=== PATIENT | male | born 1960 | race Caucasian/White ===

== ENCOUNTER 2016-07-29 00:03 | Inpatient (IN) | payer OTHER ==
[~2016-07-29] VITALS: Ht 185.4 cm; Wt 85.9 kg
[~2016-07-29 00:03] MED LIST: NOHOMEMEDS
[2016-07-29 01:10] LABS: HEMATOCRIT 37.1 % (38.0-50.0); MCH 30.3 PG (29.0-34.0); MCHC 35.6 G/DL (30.0-36.0); MCV 85.1 FL (86-99); MEAN PLAT.VOLUME 11.3 uM^3 (9.0-12.4); PLATELET COUNT 359 K/uL (156-360); RBC DIS.WIDTH-CV 11.9 % (11.8-14.6); RBC DIS.WIDTH-SD 36.4 % (39-53); RED BLOOD COUNT 4.36 M/uL (4.00-5.50); WHITE BLOOD COUNT 12.7 K/uL (4.1-10.2)
[2016-07-29 01:19] LABS: CHLORIDE 105 mEq/L (99-109); POTASSIUM 3.8 mEq/L (3.7-5.4); SODIUM 138 mEq/L (136-147)
[2016-07-29 01:20] LABS: GLUCOSE 128 mg/dL (70-99)
[2016-07-29 01:22] LABS: ANION GAP 12 MEQ/L (2-14)
[2016-07-29 01:24] LABS: GFR ESTIMATE (CALCULATED) > 59 mL/min/
[2016-07-29 01:25] LABS: UREA NITROGEN (BUN) 17 mg/dL (9-23)
[2016-07-29 01:25] LABS: ADD MIUA? NO; BILIRUBIN NEGATIVE; BLOOD NEGATIVE; COLOR YELLOW ((YELLOW)); GLUCOSE (STRIP) NEGATIVE; KETONES NEGATIVE; LEUKOCYTES NEGATIVE; NITRITE NEGATIVE; PROTEIN (STRIP) 30; UCUL ADDED? NO; UROBILINOGEN 0.2 MG/DL (0.2-1.0)
[2016-07-29 01:28] LABS: D-DIMER ELISA 1.73 mg/L FEU (< 0.57)
[2016-07-29 02:47] LABS: PROTHROMBIN TIME 10.4 (9.2-11.2); PTT 28.5 (25-32)
[2016-07-29 06:22] VITALS: BP 139/79
[2016-07-29 09:06] LABS: HEMATOCRIT 33.7 % (38.0-50.0); MCH 29.7 PG (29.0-34.0); MCHC 34.4 G/DL (30.0-36.0); MCV 86.2 FL (86-99); MEAN PLAT.VOLUME 11.1 uM^3 (9.0-12.4); PLATELET COUNT 301 K/uL (156-360); RBC DIS.WIDTH-CV 12.2 % (11.8-14.6); RBC DIS.WIDTH-SD 38.4 % (39-53); RED BLOOD COUNT 3.91 M/uL (4.00-5.50); WHITE BLOOD COUNT 10.6 K/uL (4.1-10.2)
[2016-07-29 09:07] VITALS: BP 115/67
[2016-07-29 09:28] LABS: ALKALINE PHOSPHATASE 75 IU/L (3-129); ANION GAP 9 MEQ/L (2-14); CHLORIDE 105 MEQ/L (99-109); GFR ESTIMATE (CALCULATED) > 59 mL/min/; GLUCOSE 116 mg/dL (70-99); POTASSIUM 3.8 MEQ/L (3.7-5.4); SAMPLE HEMOLYSIS CHECK 0; SAMPLE ICTERIC CHECK 0; SAMPLE LIPEMIA CHECK 0; SODIUM 138 MEQ/L (136-147); TOTAL BILIRUBIN 1.2 MG/DL (0.0-1.0); UREA NITROGEN (BUN) 17 mg/dL (9-23)
[2016-07-29 11:36] LABS: INTER. NORMALIZED RATIO 1.1; PROTHROMBIN TIME 10.9 (9.2-11.2)
[2016-07-29 12:39] VITALS: BP 118/74
[2016-07-29] MEDS ORDERED: LIPITOR20 MG PO (12:56)
[2016-07-29] MEDS ORDERED: TYLENOL REGULA325 MG PO (12:57)
[2016-07-29] MEDS ORDERED: OXAYDO5 MG PO (12:57)
[2016-07-29] MEDS ORDERED: OSTEO BI-FLEX1 EAC1 PO (12:58)
[2016-07-29 16:30] VITALS: BP 149/80
[2016-07-29 20:02] VITALS: BP 138/78
[2016-07-30 01:02] VITALS: BP 143/78
[2016-07-30 04:44] VITALS: BP 135/77
[2016-07-30 06:10] LABS: BASOPHIL COUNT 0.1 K/uL (0-0.1); EOSINOPHIL COUNT 0.3 K/uL (0-0.3); HEMATOCRIT 32.7 % (38.0-50.0); IMMATURE GRANULOCYTE (%) 0.3 % (0.0-0.7); INSTRUMENT ABS NEUTROPHIL CT 7.5 K/uL; LYMPHOCYTE COUNT 1.4 K/uL (1.0-2.8); MCH 29.7 PG (29.0-34.0); MCHC 34.6 G/DL (30.0-36.0); MCV 85.8 FL (86-99); MEAN PLAT.VOLUME 11.1 uM^3 (9.0-12.4); MONOCYTE (%) 9.6 % (3-12); NEUTROPHIL (%) 72.9 % (45-76); NEUTROPHIL COUNT 7.5 K/uL (1.8-6.4); PLATELET COUNT 300 K/uL (156-360); RBC DIS.WIDTH-SD 37.4 % (39-53); RED BLOOD COUNT 3.81 M/uL (4.00-5.50); WHITE BLOOD COUNT 10.3 K/uL (4.1-10.2)
[2016-07-30 06:37] LABS: ANION GAP 7 MEQ/L (2-14); CHLORIDE 101 MEQ/L (99-109); GFR ESTIMATE (CALCULATED) > 59 mL/min/; GLUCOSE 99 mg/dL (70-99); POTASSIUM 4.2 MEQ/L (3.7-5.4); SAMPLE HEMOLYSIS CHECK 0; SAMPLE ICTERIC CHECK 0; SAMPLE LIPEMIA CHECK 0; SODIUM 135 MEQ/L (136-147); UREA NITROGEN (BUN) 11 mg/dL (9-23)
[2016-07-30 07:50] VITALS: BP 130/80
[2016-07-30 11:43] VITALS: BP 130/75
[2016-07-30 15:50] VITALS: BP 115/66
[2016-07-30 20:15] VITALS: BP 118/63
[2016-07-31] VITALS: BP 134/82
[2016-07-31 04:00] VITALS: BP 119/75
[2016-07-31 13:18] VITALS: BP 151/71
[2016-07-31 17:22] VITALS: BP 122/80
[2016-07-31 20:30] VITALS: BP 136/78
[2016-08-01 00:01] VITALS: BP 125/67
[2016-08-01 04:05] VITALS: BP 134/88
[2016-08-01 06:02] LABS: LUPA PHOSPHOLIPID NEUTRALIZ Negative (Negative)
[2016-08-01 08:11] VITALS: BP 119/76
[2016-08-01 09:32] LABS: BASOPHIL COUNT 0.1 K/uL (0-0.1); EOSINOPHIL (%) 3.4 % (0-5); EOSINOPHIL COUNT 0.3 K/uL (0-0.3); HEMATOCRIT 38.5 % (38.0-50.0); IMMATURE GRANULOCYTE (%) 0.6 % (0.0-0.7); IMMATURE GRANULOCYTE COUNT 0.1 K/uL; INSTRUMENT ABS NEUTROPHIL CT 5.9 K/uL; LYMPHOCYTE COUNT 1.6 K/uL (1.0-2.8); MCH 29.7 PG (29.0-34.0); MCHC 34.8 G/DL (30.0-36.0); MCV 85.4 FL (86-99); MONOCYTE (%) 7.6 % (3-12); MONOCYTE COUNT 0.7 K/uL (0-0.8); NEUTROPHIL COUNT 5.9 K/uL (1.8-6.4); PLATELET COUNT 357 K/uL (156-360); RBC DIS.WIDTH-CV 11.8 % (11.8-14.6); RBC DIS.WIDTH-SD 36.3 % (39-53); RED BLOOD COUNT 4.51 M/uL (4.00-5.50); WHITE BLOOD COUNT 8.6 K/uL (4.1-10.2)
[2016-08-01 12:02] VITALS: BP 124/77
[2016-08-01 14:04] LABS: DRVVT Mixing Study Interp Not Indicated (()); PROTEIN C FUNCTIONAL ACTIVITY+ 193 % (70-180); PTT-LA 61 sec (<=40); PTT-LA Reflex Has been added (()); Protein S, Free 111 % normal (57-171); dRVVT Screen 57 sec (<=45)
[2016-08-01] MEDS ORDERED: ELIQUIS5 MG PO (15:32)
[2016-08-01 15:43] VITALS: BP 135/84
[2016-08-06 08:06] LABS: ANTITHROMBIN III ACTIVITY+ 98 % activi (80-120)
== END 2016-08-01 16:11 | disposition home or self-care (01) | DRG 176 ==
LOC: EME 00:03 → 4SOUTH 03:52 → EDOF 03:52 → 4SOUTH 05:50
PROVIDERS: Internal Medicine; Student in an Organized Health Care Education/Training Program
DX: I26.99 Other pulmonary embolism without acute cor pulmonale (principal); S92.001S Unspecified fracture of right calcaneus, sequela; Z98.890 Other specified postprocedural states; G89.18 Other acute postprocedural pain; R73.9 Hyperglycemia, unspecified; I10 Essential (primary) hypertension; R00.0 Tachycardia, unspecified; S32.048 Other fracture of fourth lumbar vertebra
CPT/HCPCS: 71275; 74177; 80048; 80053; 81003; 81240 90; 83090 90; 85025; 85027; 85240 90; 85300 90; 85303 90; 85305 90; 85306 90; 85307 90; 85379; 85610; 85613 90; 85730; 85730 90; 86146 90; 86147 90; 93005; 93306; 93970; 99281; 99285; J1650; J2270; J2405; J7030

== ENCOUNTER 2016-09-10 12:20 | Emergency (ER) | payer OTHER ==
[~2016-09-10] VITALS: Ht 185.4 cm; Wt 87.5 kg
[~2016-09-10 12:20] MED LIST changes: +ELIQUIS5 MG PO; +LIPITOR20 MG PO; +OSTEO BI-FLEX1 EAC1 PO; +OXAYDO5 MG PO; +TYLENOL REGULA325 MG PO
[2016-09-10 14:52] LABS: HEMATOCRIT 42.3 % (38.0-50.0); MCH 29.5 PG (29.0-34.0); MCV 84.4 FL (86-99); MEAN PLAT.VOLUME 11.5 uM^3 (9.0-12.4); PLATELET COUNT 234 K/uL (156-360); RBC DIS.WIDTH-CV 12.5 % (11.8-14.6); RED BLOOD COUNT 5.01 M/uL (4.00-5.50); WHITE BLOOD COUNT 7.6 K/uL (4.1-10.2)
[2016-09-10 15:01] LABS: CHLORIDE 107 mEq/L (99-109); POTASSIUM 4.3 mEq/L (3.7-5.4); SODIUM 140 mEq/L (136-147)
[2016-09-10 15:03] LABS: GLUCOSE 87 mg/dL (70-99)
[2016-09-10 15:04] LABS: ANION GAP 10 MEQ/L (2-14)
[2016-09-10 15:07] LABS: GFR ESTIMATE (CALCULATED) > 59 mL/min/; UREA NITROGEN (BUN) 10 mg/dL (9-23)
[2016-09-10 15:10] LABS: D-DIMER ELISA 0.41 mg/L FEU (< 0.57); INTER. NORMALIZED RATIO 1.1; PROTHROMBIN TIME 10.7 (9.2-11.2); PTT 28.5 (25-32)
[2016-09-10 15:14] LABS: TROP-I INTERPRETATION NEGATIVE; TROPONIN-I < 0.01 ng/mL (0.0-0.30)
[2016-09-10 19:17] VITALS: BP 166/100
== END 2016-09-10 19:17 | disposition home or self-care (01) ==
LOC: EME 12:20
PROVIDERS: Emergency Medicine
DX: R06.02 Shortness of breath (principal); R51 Headache; Z86.718 Personal history of other venous thrombosis and embolism; Z79.01 Long term (current) use of anticoagulants
CPT/HCPCS: 70450; 70551; 71020; 80048; 84484; 85027; 85379; 85610; 85730; 93005; 99281; 99285